=== PATIENT | male | born 1980 | race Caucasian/White ===

== ENCOUNTER 2021-11-19 11:28 | Emergency (ER) | payer OTHER, SELFPAY ==
--- NOTE | ~2021-11-19 | XR_ITS ---
XR finger 4th RT min 2V 11/19/2021 12:10 Indication: Right fourth finger pain after laceration Procedure: 4 views right fourth finger Comparison: No prior studies for comparison. Findings: No fracture, subluxation or dislocation. There is a healed fourth metacarpal fracture. No s ignificant soft tissue abnormality. No foreign bodies. Impression: 1: No acute fracture. Reviewed, dictated and finalized at location A. E CONTRACTOR Impression: 1: No acute fracture.
[2021-11-19 11:30] VITALS: BP 148/100; PULSE 94; RESP 18; TEMP 36.1; O2SAT 97
--- NOTE | 2021-11-19 12:27 | ED.UPPEXIN ---
HPI - Extremity Injury (Upper) General Chief Complaint: Extremity Injury, Upper Stated Complaint: right finger injury Time Seen by Provider: 11/19/21 12:11 Source: patient Mode of arrival: ambulatory Limitations: no limitations History of Present Illness HPI narrative: This is a 41-year-old male that presents to the emergency department for a laceration to the right fourth finger sustained just prior to arrival. Reports he was using the snowblower to get snow off of his 's vehicle. He sustained a laceration from the motor in it. Reports bleeding and pain to the area. Reports he is up to date on tetanus. Denies decreased ROM or numbness. Related Data Allergies Allergy/AdvReac Type Severity Reaction Status Date / Time Penicillins Allergy Swelling Verified 11/19/21 12:01 of Lip/Tongue/Throat Review of Systems Review of Systems: CONSTITUTIONAL: Denies fever SKIN: Reports laceration MUSCULOSKELETAL: Denies joint pain, or myalgia. NEUROLOGIC: Denies numbness All systems reviewed & are unremarkable except as noted in HPI and below PMFSH Past Medical History Medical History (Updated 11/19/21 @ 13:09 by Alanna Bustillos PA-C) No active medical problems Social History Social History (Updated 11/19/21 @ 12:31 by Alanna Bustillos PA-C) Substance use: never Exam Narrative: GENERAL: Well-appearing, well-nourished, and in no acute distress. HEAD: Normocephalic, atraumatic. EYES: EOMI. EXTREMITIES: Normal range of motion. No edema or obvious deformity. Right fourth finger with superficial skin avulsion to the distal phalanx. Normal radial pulses. Normal sensation SKIN: Warm, dry, no rash. NEURO: No focal deficits. Alert and oriented x3. PSYCH: Normal mood and affect Course Vital Signs Vital signs: Vital Signs Temperature 97 F L 11/19/21 11:30 Pulse Rate 94 11/19/21 11:30 Respiratory Rate 18 11/19/21 11:30 Blood Pressure 148/100 H 11/19/21 11:30 Pulse Oximetry 97 11/19/21 11:30 Temperature 97 F L 11/19/21 11:30 Pulse Rate 94 11/19/21 11:30 Respiratory Rate 18 11/19/21 11:30 Blood Pressure 148/100 H 11/19/21 11:30 Pulse Oximetry 97 11/19/21 11:30 MDM - Extremity Injury (Upper) MDM Narrative Medical decision making narrative: Patient presents to the emergency department for right fourth finger injury sustained just prior to arrival. He is neurovascularly intact. He is up-to-date on tetanus. His wound was thoroughly irrigated. Sustained a superficial skin avulsion. This was bandaged. Patient was educated on wound care. Right fourth finger x-rays without acute osseous abnormalities. Patient was updated on case findings. He is to follow-up with primary care doctor. He was given warnings to return to the ER Imaging Data Attestation: I personally reviewed and interpreted this imaging study as follows: Radiologist's impression: Right 4th finger x-ray radiologist read- No active disease Critical Care Time Critical Care Time Critical Care Time: No Discharge Plan Discharge Clinical Impression: Avulsion of skin Patient Disposition: Home, Self-Care Condition: Stable Instructions: Antibiotic Form, Skin Avulsion (ED) Additional Instructions: Return to the emergency department if you experience fever, redness or swelling of your wound, abnormal drainage from your wound, or any other symptoms that are concerning to you. Take oral antibiotic as prescribed. Apply antibiotic ointment daily. Do not soak the wound. Clean with mild soap and water daily and change your bandage Follow-up with your primary care doctor for wound check Prescriptions: New sulfamethoxazole-trimethoprim [Bactrim DS] 800-160 mg tablet 1 tablet PO Q12H 3 Days Qty: 6 RF: 0 Follow-up/Referrals: Jean Helm MD [Physician] - 1 Week UNKNOWN,DOCTOR [Primary Care Provider] -
[2021-11-19] MEDS: HYDROcodone/acetaminophen (*CRX) 5-325 MG TABLET 1 TAB PO (12:38)
== END 2021-11-19 13:42 | disposition home or self-care (01) ==
PROVIDERS: Emergency Provider Emergency Medicine
DX: S61.214A Laceration without foreign body of right ring finger without damage to nail, initial encounter (principal); W29.8XXA Contact with other powered hand tools and household machinery, initial encounter
CPT/HCPCS: 73140; 99283; A9270

== ENCOUNTER 2022-04-23 11:36 | Emergency (ER) | payer OTHER, SELFPAY ==
--- NOTE | ~2022-04-23 | XR_ITS ---
XR chest 2V DATE: 04/23/2022 12:43 INDICATION: Chest pain TECHNIQUE: PA and lateral views COMPARISON: None FINDINGS: Normal heart size. No hilar or mediastinal enlargement. Right lower lobe calcified pulmonar y granuloma. No pulmonary infiltrate or consolidation, pleural effusion or pulmonary vascular congest ion or pneumothorax. Skeletal structures are unremarkable. IMPRESSION: No active cardiopulmonary disease Reviewed, dictated and finalized at location A.
[2022-04-23 11:39] VITALS: BP 151/92; PULSE 65; RESP 16; TEMP 36.7; O2SAT 100
--- NOTE | 2022-04-23 12:24 | ECG_ITS ---
Measurements Intervals [place] Rate: 51 P: 10 SD: 201 QRS: -7 QRSD: 102 T: 9 QT: 410 QTc: 379 Interpretive Statements SINUS BRADYCARDIA OTHERWISE NORMAL ECG NO PREVIOUS ECG AVAILABLE FOR COMPARISON Electronically Signed On 04-24-2022 12:57:49 CDT by Pedro Blackman M.D.
[2022-04-23 12:43] LABS: Basophils Absolute Auto 0.1 K/mm3 (0.0-0.1); Basophils Percent Auto 0.5 % (0.2-1.2); Eosinophils Absolute Auto 0.1 K/mm3 (0-0.3); Eosinophils Percent Auto 0.9 % (0-4.4); Hematocrit 42.5 % (42.0-52.0); Hemoglobin 14.3 g/dL (14.0-18.0); Immature Granulocyte Absolute 0.03 K/mm3 (0.00-0.031); Immature Granulocyte Percent A 0.3 % (0-0.5); Lymphocytes Absolute Auto 1.98 K/mm3 (0.9-3.2); Lymphocytes Percent Auto 18.3 % (18.3-44.2); Mean Corpuscular HGB Conc 33.6 g/dl (32-36); Mean Corpuscular Hemoglobin 30.4 pg (26-34); Mean Corpuscular Volume 90.2 fl (80-100); Mean Platelet Volume 8.6 fl (7.4-10.4); Monocytes Absolute Auto 0.4 K/mm3 (0.1-0.6); Monocytes Percent Auto 3.2 % (2.6-8.5); Neutrophils Absolute Auto 8.3 K/mm3 (1.3-6.7); Neutrophils Percent Auto 76.8 % (45.5-73.1); Platelet Count Result 260 k/mm3 (150-375); Red Blood Count 4.71 M/mm3 (4.6-6.20); Red Cell Distribution Width 13.4 % (11.5-14.5); White Blood Count 10.8 K/mm3 (4.5-10.0)
--- NOTE | 2022-04-23 12:43 | PC.NURSE ---
pt taken to CT scan
[2022-04-23] MEDS: KETOROLAC 30 MG/ML VIAL (*BKC) IV PUSH (12:47)
[2022-04-23 12:54] LABS: Anion Gap 2 mmol/L (8-16); Blood Urea Nitrogen 14 mg/dL (9-20); Calcium 9.1 mg/dL (8.4-10.2); Carbon Dioxide 27 mmol/L (22-30); Chloride 108 mmol/L (98-107); Estimated CRCL calculation 124 ml/min; Estimated Glomerular Filt Rate > 60; Glucose 102 mg/dL (65-110); Potassium 3.9 mmol/L (3.4-5.0); Sodium 137 mmol/L (137-145)
[2022-04-23 12:56] LABS: INR 1.1; Prothrombin Time 13.3 Seconds (11.1-14.7)
[2022-04-23 12:57] LABS: Partial Thromboplastin Time 28.3 SECONDS (22.3-36.8)
[2022-04-23 13:06] LABS: Troponin I < 0.012 ng/mL (0.000-0.034)
--- NOTE | 2022-04-23 13:31 | ED.GENADULT ---
HPI - General Adult General Chief complaint: Extremity Injury, Upper Stated complaint: left shoulder pain Time Seen by Provider: 04/23/22 12:00 History of Present Illness HPI narrative: Patient is a 41-year-old male who presents ER with left shoulder pain. Reports he woke up this morning at 3 AM had some achy left chest pain as well as left shoulder pain and pain near the scapula. He is also having some achiness in his left bicep. 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 He takes ibuprofen and Tylenol regularly. No exertional chest pain or pressure. No diaphoresis/nausea/vomiting. No history of heart disease. Has a grandmother who had a heart attack but not a first-degree relative. Related Data Allergies Allergy/AdvReac Type Severity Reaction Status Date / Time Penicillins Allergy Swelling Verified 04/23/22 11:42 of Lip/Tongue/Throat Review of Systems Review of Systems: All systems reviewed & are unremarkable except as noted in HPI and below Constitutional: Constitutional: Denies chills and Denies fever(s) ENT: Denies nasal congestion and Denies sore throat Cardiovascular: Cardiovascular: Reports chest pain, Denies rapid heart rate and Denies radiating jaw, neck or arm pain Respiratory: Respiratory: Denies cough, Denies dyspnea and Denies wheezing Gastrointestinal: Gastrointestinal: Denies abdominal pain, Denies nausea and Denies vomiting Musculoskeletal: Musculoskeletal: Reports back pain, Reports arthralgias, Denies joint swelling and Reports muscle cramps Neurologic: Denies headache(s), Denies focal weakness and Denies numbness PMFSH Past Medical History Medical History (Updated 04/23/22 @ 13:40 by Camilo Lundberg MD) Bipolar disorder Schizophrenia Surgical History Surgical History (Updated 04/23/22 @ 13:33 by Camilo Lundberg MD) No pertinent past surgical history Social History Social History (Updated 11/19/21 @ 12:31 by Alanna Bustillos PA-C) Substance use: never Exam Narrative: GENERAL: Well-appearing, well-nourished, and in no acute distress. HEAD: Normocephalic, atraumatic. ENT: Mucous membranes moist. CHEST: Clear to auscultation. No respiratory distress. HEART: Bradycardic and regular. Normal peripheral pulses. ABDOMEN: Soft, nontender, nondistended. Back: Mild tenderness over the left trapezius muscle as well as paraspinal musculature medial to the left scapula. EXTREMITIES: Normal range of motion. No tenderness left upper extremity. Patient points tenderness about the left shoulder without evidence of trauma or swelling. No edema. SKIN: Warm, dry, no rash. NEURO: No focal deficits. Alert and oriented x3. Course Course Emergency Course: Pain improved with Toradol. Labs unremarkable. Symptoms felt to be muscular skeletal in etiology. Recommend continue anti-inflammatories and Tylenol at home. Vital Signs Vital signs: Vital Signs Temperature 98.1 F 04/23/22 11:39 Pulse Rate 65 04/23/22 11:39 Respiratory Rate 16 04/23/22 11:39 Blood Pressure 151/92 H 04/23/22 11:39 Pulse Oximetry 100 04/23/22 11:39 Oxygen Delivery Room Air 04/23/22 11:39 Temperature 98.1 F 04/23/22 11:39 Pulse Rate 65 04/23/22 11:39 Respiratory Rate 16 04/23/22 11:39 Blood Pressure 151/92 H 04/23/22 11:39 Pulse Oximetry 100 04/23/22 11:39 Oxygen Delivery Room Air 04/23/22 11:39 Medical Decision Making Vital Signs Vital Signs: Vital Signs Temperature 98.1 F 04/23/22 11:39 Pulse Rate 65 04/23/22 11:39 Respiratory Rate 16 04/23/22 11:39 Blood Pressure 151/92 H 04/23/22 11:39 Pulse Oximetry 100 04/23/22 11:39 Oxygen Delivery Room Air 04/23/22 11:39 Temperature 98.1 F 04/23/22 11:39 Pulse Rate 65 04/23/22 11:39 Respiratory Rate 16 04/23/22 11:39 Blood Pressure 151/92 H 04/23/22 11:39 Pulse Oximetry 100 04/23/22 11:39 Oxygen Delivery Room Air 04/23/22 11:39 Lab Rush
[2022-04-23 13:48] VITALS: BP 148/87; PULSE 56; RESP 20; O2SAT 100
== END 2022-04-23 13:50 | disposition home or self-care (01) ==
PROVIDERS: Emergency Provider Emergency Medicine
DX: S29.012A Strain of muscle and tendon of back wall of thorax, initial encounter (principal); M25.512 Pain in left shoulder; R00.1 Bradycardia, unspecified; X58.XXXA Exposure to other specified factors, initial encounter
CPT/HCPCS: 36415; 71046; 80048; 84484; 85025; 85610; 85730; 93005; 96374; 99284; J1885

== ENCOUNTER 2022-05-30 12:31 | Emergency (ER) | payer OTHER, SELFPAY ==
[2022-05-30 12:33] VITALS: BP 158/87; PULSE 85; RESP 16; TEMP 36.5; O2SAT 100
--- NOTE | 2022-05-30 12:57 | ED.FEVER ---
HPI - Fever General Chief Complaint: Fever Stated Complaint: headache, fever Time Seen by Provider: 05/30/22 12:43 History of Present Illness HPI Narrative: 41-year-old male presents to the emergency department for evaluation of intermittent fever. Patient states that there have been multiple people sick at work but he does not suspect that he had COVID. Patient states that he was running a fever yesterday. Patient reports he does treat his fever and chronic pain with ibuprofen 3 times a day. Patient states he thought he was running a fever last night and did not feel his fever broke. Patient states when he woke up this morning the fever had resolved but patient states he still had a minor frontal headache. Patient denies any associated chest pain or shortness of breath. Patient denies any associated nausea vomiting or diarrhea. Patient denies any other complaints other than the mild frontal headache. Related Data Allergies Allergy/AdvReac Type Severity Reaction Status Date / Time Penicillins Allergy Swelling Verified 05/30/22 12:46 of Lip/Tongue/Throat Review of Systems Review of Systems: CONSTITUTIONAL: Subjective fevers and sweats EYES: Denies visual changes, redness, or discharge. ENT: Denies rhinorrhea, congestion, sore throat, or otalgia. CARDIOVASCULAR: Denies chest pain, palpitations, or edema. RESPIRATORY: Denies cough or dyspnea. GASTROINTESTINAL: Denies abdominal pain, nausea, vomiting, or diarrhea. GENITOURINARY: Denies dysuria or hematuria. SKIN: Denies rash or itching. MUSCULOSKELETAL: Denies back pain, joint pain, or myalgia. NEUROLOGIC: Headache but denies any associated numbness or weakness PSYCHIATRIC: Reports history of anxiety and depression PMFSH Past Medical History Medical History (Updated 05/30/22 @ 14:06 by Ashwin De Leon MD) Bipolar disorder Schizophrenia Surgical History Surgical History (Updated 04/23/22 @ 13:33 by Camilo Lundberg MD) No pertinent past surgical history Social History Social History (Updated 11/19/21 @ 12:31 by Alanna Bustillos PA-C) Substance use: never Exam Narrative: APPEARANCE: Well appearing, no pain, no distress, well-nourished. HEAD: normocephalic, atraumatic. EYES: PERRLA/EOMI, conjunctivae clear. NOSE: Normal no drainage EARS:TMS clear with good light reflex. THROAT: Pharynx clear, no exudate. NECK: Supple. No adenopathy, no masses. No meningeal signs RESPIRATORY: Airway patent, respirations nonlabored. Clear to auscultation bilaterally, no rales, rhonchi, wheezing. CARDIOVASCULAR: Regular rate and rhythm without murmurs rubs or gallops. ABDOMINAL: Soft, nontender, nondistended, normal bowel sounds MUSCULOSKELETAL: Moves all extremities. Strength/ROM intact, No edema, No calf tenderness. NEURO: Alert. Cranial nerves II through XII intact. Grossly intact SKIN: Warm, dry. Normal Color Course Course Emergency Course: Patient did test positive for COVID. Vital Signs Vital signs: Vital Signs Temperature 97.7 F 05/30/22 12:33 Pulse Rate 85 05/30/22 12:33 Respiratory Rate 16 05/30/22 12:33 Blood Pressure 158/87 H 05/30/22 12:33 Pulse Oximetry 100 05/30/22 12:33 Oxygen Delivery Room Air 05/30/22 12:33 Temperature 97.7 F 05/30/22 12:33 Pulse Rate 85 05/30/22 12:33 Respiratory Rate 16 05/30/22 12:33 Blood Pressure 158/87 H 05/30/22 12:33 Pulse Oximetry 100 05/30/22 12:33 Oxygen Delivery Room Air 05/30/22 12:33 MDM - Fever Lab Data Attestation: I reviewed the patient's lab results. Result diagrams: 05/30/22 13:04 05/30/22 13:04 Labs: Lab Results 05/30/22 05/30/22 05/30/22 Range/Units 13:04 13:04 13:04 WBC 8.4 (4.5-10.0) K/mm3 RBC 4.68 (4.6-6.20) M/mm3 Hgb 14.3 (14.0-18.0) g/dL Hct 43.0 (42.0-52.0) % MCV 91.9 (80-100) fl MCH 30.6 (26-34) pg MCHC 33.3 (32-36) g/dl RDW 14.3 (11.5-14.5) % Plt Count 215
[2022-05-30] MEDS: SODIUM CHLORIDE 0.9% IV 1,000 ML 999 ML IV CONT (13:06)
[2022-05-30 13:12] LABS: Basophils Percent Auto 0.5 % (0.2-1.2); Eosinophils Percent Auto 0.1 % (0-4.4); Hemoglobin 14.3 g/dL (14.0-18.0); Immature Granulocyte Absolute 0.02 K/mm3 (0.00-0.031); Immature Granulocyte Percent A 0.2 % (0-0.5); Lymphocytes Absolute Auto 0.57 K/mm3 (0.9-3.2); Lymphocytes Percent Auto 6.8 % (18.3-44.2); Mean Corpuscular HGB Conc 33.3 g/dl (32-36); Mean Corpuscular Hemoglobin 30.6 pg (26-34); Mean Corpuscular Volume 91.9 fl (80-100); Mean Platelet Volume 8.9 fl (7.4-10.4); Monocytes Absolute Auto 0.6 K/mm3 (0.1-0.6); Monocytes Percent Auto 6.7 % (2.6-8.5); Neutrophils Absolute Auto 7.2 K/mm3 (1.3-6.7); Neutrophils Percent Auto 85.7 % (45.5-73.1); Platelet Count Result 215 k/mm3 (150-375); Red Blood Count 4.68 M/mm3 (4.6-6.20); Red Cell Distribution Width 14.3 % (11.5-14.5); White Blood Count 8.4 K/mm3 (4.5-10.0)
[2022-05-30 13:21] LABS: Alanine Aminotransferase 24 U/L (6-50); Albumin Level 4.7 g/dL (3.5-5.1); Alkaline Phosphatase 54 U/L (38-126); Anion Gap 9 mmol/L (8-16); Aspartate Amino Transferase 30 U/L (17-59); Bilirubin,Total 0.8 mg/dL (0.2-1.3); Blood Urea Nitrogen 15 mg/dL (9-20); Calcium 9.4 mg/dL (8.4-10.2); Carbon Dioxide 27 mmol/L (22-30); Chloride 102 mmol/L (98-107); Estimated CRCL calculation 113 ml/min; Estimated Glomerular Filt Rate > 60; Glucose 96 mg/dL (65-110); Potassium 4.4 mmol/L (3.4-5.0); Sodium 138 mmol/L (137-145)
[2022-05-30 13:48] LABS: SARS-CoV-2 RNA PCR Positive
== END 2022-05-30 14:16 | disposition home or self-care (01) ==
PROVIDERS: Emergency Provider Emergency Medicine
DX: U07.1 COVID-19 (principal)
CPT/HCPCS: 36415; 80053; 85025; 96360; 99283; C9803; J7030; U0003; U0005

== ENCOUNTER 2022-06-02 20:03 | Emergency (ER) | payer OTHER, SELFPAY ==
[2022-06-02 20:42] VITALS: BP 144/107; PULSE 75; RESP 18; TEMP 36.4; O2SAT 100
--- NOTE | 2022-06-02 21:45 | PC.NURSE ---
Pt stepped outside to smoke cigarette
--- NOTE | 2022-06-02 22:54 | ED.DIZZY ---
HPI - Dizziness General Chief Complaint: Dizziness Stated Complaint: COVID +/ dizzy Time Seen by Provider: 06/02/22 22:23 History of Present Illness HPI Narrative: 41-year-old male presents to the emergency room for evaluation of intermittent dizziness. Patient states that he had 2 episodes of dizziness that lasted about 5 to 10 minutes each. Denies nausea vomiting or light sensitivity. Denies injury or trauma. Patient states that he was recently diagnosed with COVID. Denies chest pain. Dizziness is not worse with sudden head movements. Related Data Allergies Allergy/AdvReac Type Severity Reaction Status Date / Time Penicillins Allergy Swelling Verified 05/30/22 12:46 of Lip/Tongue/Throat Review of Systems Review of Systems: CONSTITUTIONAL: Denies fever, chills, or sweats. EYES: Denies visual changes, redness, or discharge. ENT: Denies rhinorrhea, congestion, sore throat, or otalgia. CARDIOVASCULAR: Denies chest pain, palpitations, or edema. RESPIRATORY: Denies cough or dyspnea. GASTROINTESTINAL: Denies abdominal pain, nausea, vomiting, or diarrhea. GENITOURINARY: Denies dysuria or hematuria. SKIN: Denies rash or itching. MUSCULOSKELETAL: Denies back pain, joint pain, or myalgia. NEUROLOGIC: Reports dizziness PSYCHIATRIC: Denies anxiety or depression. PMFSH Past Medical History Medical History Bipolar disorder Schizophrenia Surgical History Surgical History No pertinent past surgical history Social History Social History Substance use: never Exam Narrative: GENERAL: Well-appearing, well-nourished, no physical limitations, and in no acute distress. HEAD: Normocephalic, atraumatic. EYES: Conjunctivae normal, PERRLA and EOMI. NECK: Supple. No meningeal signs. No adenopathy or masses. CHEST: Clear to auscultation. No respiratory distress. No wheezes rales or rhonchi. No tenderness. HEART: Regular rate and rhythm. No murmur heard. Normal peripheral pulses. EXTREMITIES: Normal range of motion. No edema. No clubbing or cyanosis SKIN: Warm, dry, no rash. No noted wounds NEURO: No focal deficits. Alert and oriented x3. MAEW. CN's II-XI intact bilaterally, normal gait PSYCH: Cooperative. Normal mood and affect. Course Vital Signs Vital signs: Vital Signs Temperature 36.4 C L 06/02/22 20:42 Pulse Rate 75 06/02/22 20:42 Respiratory Rate 18 06/02/22 20:42 Blood Pressure 144/107 H 06/02/22 20:42 Pulse Oximetry 100 06/02/22 20:42 Oxygen Delivery Room Air 06/02/22 20:42 Temperature 36.4 C L 06/02/22 20:42 Pulse Rate 75 06/02/22 20:42 Respiratory Rate 18 06/02/22 20:42 Blood Pressure 144/107 H 06/02/22 20:42 Pulse Oximetry 100 06/02/22 20:42 Oxygen Delivery Room Air 06/02/22 20:42 MDM - Dizziness MDM Narrative Medical decision making narrative: Offered patient work-up including a CT scan, EKG, and lab work. Patient denied. States that dizziness is resolved and is just wishing to be discharged. Discharge Plan Discharge Clinical Impression: COVID, Dizziness Patient Disposition: Home, Self-Care Condition: Stable Instructions: Antibiotic Form, Dizziness (ED), COVID-19 (Coronavirus Disease 2019) (ED) Follow-up/Referrals: PHYSICIAN,WEB COORDINATOR [Primary Care Provider] - Time of Disposition: 22:53
== END 2022-06-02 23:17 | disposition home or self-care (01) ==
PROVIDERS: Emergency Provider Nurse Practitioner Family
DX: U07.1 COVID-19 (principal); R42 Dizziness and giddiness
CPT/HCPCS: 99283

== ENCOUNTER → 2023-01-26 12:41 | Emergency (ER) | payer OTHER, SELFPAY ==
[2023-01-26 12:55] VITALS: BP 146/90; PULSE 87; RESP 18; TEMP 37.1; O2SAT 99
--- NOTE | 2023-01-26 13:13 | PC.NURSE ---
Pt left AMA during initial assessment. RN ONCOLOGY RESEARCH and RN assessing at the same time, patient left AMA. This RN and RN ONCOLOGY RESEARCH did tell patient that it was recommended that he goes to the ER for further evaluation. Pt declined to go to ER and reported, I am going home, this is healthcare for you. Pt ambulated out of the facility.
--- NOTE | 2023-01-26 20:38 | ED.HA ---
HPI - Headache General Chief Complaint: Headache Stated Complaint: Headache Time Seen by Provider: 01/26/23 12:57 Source: patient, RN notes reviewed and old records reviewed Mode of arrival: ambulatory Limitations: no limitations History of Present Illness HPI Narrative: 42 year old male presents to [facility] care with complaints of headache with blurred vision and nausea and vomiting which has become worse since yesterday. He states that he has migraine. Asked patient how he knew it was migraine, has he had migraines before. Patient responded with sarcastic response that he hadn't had migraines before and its your job to figure out what it is. I asked patient if he was alone here and he proceeded to state that he has 7 people with him out in waiting room should he go get them. I then told him he should go to emergency room for evaluation may need testing we can't provide here. He proceeded to ask my name I told him Reanna and he stated so your going to act like a Reanna. Told patient he needed to sign AMA form and he signed and left. MD elicited complaint: headache (blurred vision, nausea and vomitinges) Onset (ago): day(s) (yesterday) Pain scale (0-10): 10 Treatments prior to arrival: other (unknown) Related Data Allergies Allergy/AdvReac Type Severity Reaction Status Date / Time Penicillins Allergy Swelling Verified 05/30/22 12:46 of Lip/Tongue/Throat Review of Systems Review of Systems: CONSTITUTIONAL: Denies fever, chills, or sweats. EYES: Denies visual changes, redness, or discharge. ENT: Denies rhinorrhea, congestion, sore throat, or otalgia. CARDIOVASCULAR: Denies chest pain, palpitations, or edema. RESPIRATORY: Denies cough or dyspnea. GASTROINTESTINAL: Denies abdominal pain, nausea, vomiting, or diarrhea. GENITOURINARY: Denies dysuria or hematuria. SKIN: Denies rash or itching. MUSCULOSKELETAL: Denies back pain, joint pain, or myalgia. NEUROLOGIC: Denies headache, numbness, or weakness. PSYCHIATRIC: Denies anxiety or depression. ROS unobtainable: Yes other (uncoperative belligerent behavior) PMFSH Past Medical History Medical History Bipolar disorder Schizophrenia Surgical History Surgical History No pertinent past surgical history Social History Social History Substance use: never Comments At time of signature, agree with nursing past medical, surgical, social and family history. There is no relevant family history pertinent to the presenting complaint Exam Narrative: Unable to obtain patient belligerent and uncoperative Course Course Emergency Course: Patient needs to go to ED for evaluation of headache pain associated with stated blurring of vision and nausea and vomiting.Signed AMA Portions of this record may have been created with voice recognition software Level of Care: Express Care Visit Vital Signs Vital signs: Vital Signs Temperature 37.1 C 01/26/23 12:55 Pulse Rate 87 01/26/23 12:55 Respiratory Rate 18 01/26/23 12:55 Blood Pressure 146/90 H 01/26/23 12:55 Pulse Oximetry 99 01/26/23 12:55 Oxygen Delivery Room Air 01/26/23 12:55 Temperature 37.1 C 01/26/23 12:55 Pulse Rate 87 01/26/23 12:55 Respiratory Rate 18 01/26/23 12:55 Blood Pressure 146/90 H 01/26/23 12:55 Pulse Oximetry 99 01/26/23 12:55 Oxygen Delivery Room Air 01/26/23 12:55 Reviewed MDM - Headache Differential Diagnosis Differential diagnosis: Likely other (severe headache associated with stated blurred vision and nausea and vomiting) Medical Records Attestation: I reviewed the patient's medical records. Critical Care Time Critical Care Time Critical Care Time: No Discharge Plan Discharge Clinical Impression: Severe headache Patient Disposition: Left Against Medical Advice Condition: Stable
== END | disposition left against medical advice (07) ==
PROVIDERS: Emergency Provider Registered Nurse; PCP Family Medicine
DX: R51.9 Headache, unspecified (principal)
CPT/HCPCS: 99211; G0463

== ENCOUNTER 2023-09-28 17:16 | Emergency (ER) | payer OTHER, SELFPAY ==
[2023-09-28 17:23] VITALS: BP 155/104; PULSE 98; RESP 16; TEMP 36.9; O2SAT 97
--- NOTE | 2023-09-28 18:14 | ED.GENADULT ---
HPI - General Adult General Chief complaint: Extremity Problem,Nontraumatic Stated complaint: [place] on pinky toe right foot Time Seen by Provider: 09/28/23 18:15 Source: patient, RN notes reviewed and old records reviewed Mode of arrival: ambulatory Limitations: no limitations History of Present Illness HPI narrative: 43-year-old male who presents to [facility] with complaints of 2 days of painful red tissue area to the base of his right 5th toe with no known injury. 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 Patient reports that he squeezed on area yesterday and he thinks that has aggravated his pain. Patient denies any fevers ,chills or sweats. Patient reports that he has taken some Ibuprofen for his discomfort. MD complaint: red tender tissue at base of 5th toe right foot no injury. Onset (ago): day(s) (2) Location: right and lower extremity (base of 5th toe) Severity scale (1-10): 5 Treatments prior to arrival: NSAID Related Data Allergies Allergy/AdvReac Type Severity Reaction Status Date / Time Penicillins Allergy Severe Swelling Verified 09/28/23 17:42 of Lip/Tongue/Throat Review of Systems Review of Systems: CONSTITUTIONAL: Denies fever, chills, or sweats. EYES: Denies visual changes, redness, or discharge. ENT: Denies rhinorrhea, congestion, sore throat, or otalgia. CARDIOVASCULAR: Denies chest pain, palpitations, or edema. RESPIRATORY: Denies cough or dyspnea. GASTROINTESTINAL: Denies abdominal pain, nausea, vomiting, or diarrhea. GENITOURINARY: Denies dysuria or hematuria. SKIN: Denies rash or itching, reports redness and pain to base of 5th toe no known injury. MUSCULOSKELETAL: Denies back pain, joint pain, or myalgia. NEUROLOGIC: Denies headache, numbness, or weakness. PSYCHIATRIC: positive for anxiety or depression. All systems reviewed & are unremarkable except as noted in HPI and below PMFSH Past Medical History Medical History (Updated 09/30/23 @ 11:43 by Reanna Valencia NP) Anxiety and depression Bipolar disorder Schizophrenia Surgical History Surgical History (Updated 09/30/23 @ 11:43 by Reanna Valencia NP) H/O umbilical hernia repair incarcerated Social History Social History (Updated 09/30/23 @ 11:42 by Reanna Valencia NP) Smoking packs per day: 1 Smoking cigarettes per day: 20.0 Smoking status: Current every day smoker Tobacco type: cigarettes Alcohol intake: unknown Substance use: never Gender identity (if verbalized by the patient): Male Comments At time of signature, agree with nursing past medical, surgical, social and family history. There is no relevant family history pertinent to the presenting complaint Exam Narrative: GENERAL: Well-appearing, well-nourished, and in no acute distress. HEAD: Normocephalic, atraumatic. EYES: PERRLA and EOMI. ENT: Nares clear, no rhinorrhea or epistaxis. Mucous membranes moist. NECK: Supple.no lymphadenopathy CHEST: Clear to auscultation. No respiratory distress.SAO2 97% on room air HEART: Regular rate and rhythm. No murmur heard. Normal peripheral pulses. ABDOMEN: Soft, nontender, nondistended, normal active bowel sounds. EXTREMITIES: Normal range of motion. No edema.redness and tenderness to the base of 5th toe increased pain with weight bearing no drainage,.denies any injury, Sensation mobility and circulation intact right foot. SKIN: Warm, dry, no rash. NEURO: No focal deficits. Alert and oriented x3. Course Course Emergency Course: Patient is aware of diagnosis, understands and agrees to treatment plan.? Anticipatory guidance given.? Patient agrees to follow-up as directed and is aware of reasons to seek care at the emergency department. Portions of this record may have been created with voice recognition software Level of Care: Express Care Visit Vital Signs Vital signs: Vital Signs Temperature 36.9 C 09/28/23 17:23 Pulse Rate 98 1
[2023-09-28 18:35] VITALS: BP 141/114
== END 2023-09-28 18:35 | disposition home or self-care (01) ==
PROVIDERS: Emergency Provider Registered Nurse
DX: L84 Corns and callosities (principal); F17.210 Nicotine dependence, cigarettes, uncomplicated
CPT/HCPCS: 99213; G0463